=== PATIENT | male | born 1980 | race Caucasian/White ===

== ENCOUNTER → 2019-02-26 | Outpatient (REF) | payer BC ==
[2019-02-26 12:19] LABS: ALBUMIN 4.3 GM/DL (3.2-5.2); ALT/SGPT 28 U/L (12-78); BILIRUBIN,TOTAL 0.8 MG/DL (0.2-1.0); BLOOD UREA NITROGEN 15 MG/DL (7-18); CALCIUM LEVEL 9.3 MG/DL (8.5-10.1); CARBON DIOXIDE LEVEL 27 MEQ/L (21-32); CHLORIDE LEVEL 103 MEQ/L (98-107); CHOLESTEROL LEVEL 192 MG/DL (<200); CHOLESTEROL RISK RATIO 3.254 (<5); CREATININE FOR GFR 1.12 MG/DL (0.70-1.30); GLOMERULAR FILTRATION RATE > 60.0 (>60); GLUCOSE, FASTING 90 MG/DL (70-100); HDL CHOLESTEROL 59 MG/DL (>40); LDL CHOLESTEROL 119 MG/DL (<100); NON-HDL-C 133 MG/DL; POTASSIUM SERUM 4.3 MEQ/L (3.5-5.1); SODIUM LEVEL 139 MEQ/L (136-145); TOTAL PROTEIN 7.3 GM/DL (6.4-8.2); TRIGLYCERIDES LEVEL 68 MG/DL (<150)
[2019-02-28 00:06] LABS: TESTOSTERONE FREE (DIRECT) 18.7 pg/mL (8.7-25.1)
== END ==
LOC: M LABDRAW1 11:29
PROVIDERS: ATTEND Physician Assistant
DX: R53.83 Other fatigue (principal)

== ENCOUNTER 2023-12-23 11:21 | Emergency (ER) | payer BC ==
[~2023-12-23] VITALS: Ht 170.2 cm; Wt 80.4 kg
[2023-12-23] MEDS ORDERED: INFANRIX VACCINE SYRINGE (DIPHTH/TET/ACEL PERTUS PEDIATRIC) IM.IMMUN ONE (12:10)
[2023-12-23] MEDS: NS 1,000 ML IV ONE (12:37)
[2023-12-23] MEDS: ACETAMINOPHEN *IV* 1,000 MG in IV 1 EA IV ONE (12:37)
[2023-12-23] MEDS: BOOSTRIX VACCINE (TETANUS/DIPHTH/ACEL. PERTUSSIS) 0.5ML SYR IM.IMMUN ONE (12:38)
[2023-12-23] MEDS: ONDANSETRON 4MG 2ML VIAL IV ONE (12:38)
[2023-12-23 13:33] LABS: HEMATOCRIT 43.3 % (42.0-52.0); HEMOGLOBIN 14.5 g/dl (13.5-17.5); LYMPH # 0.4 10^3/uL (1.5-5.0); LYMPH % 3.4 % (24.0-44.0); MEAN CORPUSCULAR HEMOGLOBIN 28.5 pg (27.0-33.0); MEAN CORPUSCULAR HGB CONC 33.5 g/dl (32.0-36.5); MEAN CORPUSCULAR VOLUME 85.1 fl (80.0-96.0); MONO # 0.3 10^3/uL (0.0-0.8); MONO % 2.6 % (2.0-8.0); NEUTROPHILS # 10.7 10^3/uL (1.5-8.5); NEUTROPHILS % 93.7 % (36.0-66.0); PLATELET COUNT, AUTOMATED 206 10^3/uL (150-450); RED BLOOD COUNT 5.09 10^6/uL (4.30-6.10); WHITE BLOOD COUNT 11.4 10^3/uL (4.0-10.0)
[2023-12-23 13:52] LABS: INR 1.07; PROTHROMBIN TIME 13.5 SECONDS (12.5-14.5)
[2023-12-23 14:02] LABS: ALBUMIN 4.5 G/DL (3.2-5.2); ALKALINE PHOSPHATASE 81 U/L (46-116); ALT/SGPT 26 U/L (7.0-40); AST/SGOT 26 U/L (<34); BILIRUBIN,TOTAL 0.8 MG/DL (0.3-1.2); BLOOD UREA NITROGEN 10 MG/DL (9-23); CARBON DIOXIDE LEVEL 23 MMOL/L (20-31); CHLORIDE LEVEL 102 MMOL/L (98-107); GLOMERULAR FILTRATION RATE > 60.0 (>60); GLUCOSE, FASTING 111 MG/DL (60-100); POTASSIUM SERUM 5.3 MMOL/L (3.5-5.1); SODIUM LEVEL 134 MMOL/L (136-145); TOTAL PROTEIN 7.2 G/DL (5.7-8.2)
[2023-12-23 14:04] VITALS: BP 127/59; TEMP 99.5; O2SAT 100
== END 2023-12-23 14:07 | disposition short-term general hospital (02) ==
LOC: M ED 11:21
DX: S06.361A Traumatic hemorrhage of cerebrum, unspecified, with loss of consciousness of 30 minutes or less, initial encounter (principal); S01.01XA Laceration without foreign body of scalp, initial encounter; G93.6 Cerebral edema; W01.198A Fall on same level from slipping, tripping and stumbling with subsequent striking against other object, initial encounter; Y04.2XXA Assault by strike against or bumped into by another person, initial encounter; M47.812 Spondylosis without myelopathy or radiculopathy, cervical region; Y92.410 Unspecified street and highway as the place of occurrence of the external cause; Y93.89 Activity, other specified; Y99.9 Unspecified external cause status; Z91.018 Allergy to other foods; Z91.048 Other nonmedicinal substance allergy status; Z23 Encounter for immunization
CPT/HCPCS: 70450; 72125; 80053; 85025; 85610; 90471; 90715; 96365; 96375; 99284; J0131; J2405